=== PATIENT | male | born 1965 | race Caucasian/White ===

== ENCOUNTER → 2024-08-13 15:14 | Outpatient (REF) | payer BC, SELFPAY | LOC: DHVS 15:14 | PROVIDERS: ATTENDING PHYSICIAN Physician Assistant | DX: I65.23 Occlusion and stenosis of bilateral carotid arteries (principal) | CPT/HCPCS: 93880 ==

== ENCOUNTER → 2024-09-05 09:16 | Outpatient (REF) | payer BC, SELFPAY | LOC: RCS 09:16 | PROVIDERS: ATTENDING PHYSICIAN Internal Medicine Cardiovascular Disease; FAMILY PHYSICIAN Physician Assistant | DX: R01.1 Cardiac murmur, unspecified (principal); I10 Essential (primary) hypertension | CPT/HCPCS: 93306 ==

== ENCOUNTER → 2024-11-06 08:09 | Outpatient (REF) | payer BC, SELFPAY | LOC: RAD 08:09 | PROVIDERS: ATTENDING PHYSICIAN Surgery Vascular Surgery | DX: Z01.818 Encounter for other preprocedural examination (principal) | CPT/HCPCS: 93970 ==

== ENCOUNTER 2024-11-11 06:13 | Inpatient (IN) | payer BC, SELFPAY ==
[2024-11-06 09:40] VITALS: BMI 19.2
[2024-11-06 10:49] LABS: % Basophils 1.3 % (0-2); % Eosinophils 3.5 % (0-6); % Immature Granulocytes 0.4 % (0-0.5); % Lymphocytes 19.6 % (20.5-51.1); % Monocytes 7.1 % (1.7-9.3); % Neutrophils 68.1 % (42.2-75.2); Absolute Basophils 0.1 10^3/uL (0-0.2); Absolute Eosinophils 0.4 10^3/uL (0-0.7); Absolute Monocytes 0.7 10^3/uL (0.1-0.6); Hematocrit 47.9 % (39.0-52.0); Hemoglobin 16.4 g/dL (13.0-18.0); Mean Corp Hgb Conc. 34.2 g/dL (33.0-37.0); Mean Corpuscular Hgb 27.7 pg (27.0-31.0); Nucleated Red Blood Cells % 0 % (-); Platelet Count 454 10^3/uL (130-400); Red Blood Cell Count 5.91 10^6/uL (4.70-6.10); Red Cell Dist. Width 13.6 % (11.5-14.5); White Blood Cell Count 10.3 10^3/uL (4.8-10.8)
[2024-11-06 10:59] LABS: INR 0.98; PT 13.3 Sec (11.4-14.6)
[2024-11-06 11:00] LABS: APTT 32.8 Sec (23.4-35.0)
[2024-11-06 11:04] LABS: Blood Urea Nitrogen 21 mg/dl (9-20); Calcium 9.6 mg/dl (8.4-10.2); Carbon Dioxide 31 mmol/L (22-30); Chloride 97 mmol/L (98-107); Estimated Creatinine Clearance 59 ml/min; Glucose 107 mg/dl (70-99); Potassium 4.8 mmol/L (3.5-5.1); Sodium 138 mmol/L (135-145); eGFR > 60.00
[2024-11-11] VITALS (16 sets, daily range): BP systolic 69–168; BP diastolic 49–109; BMI 18.8
[2024-11-11] MEDS: BACTROBAN NASAL 1 GRAM NASAL (06:36)
[2024-11-11] MEDS: PERIDEX 0.12% ORAL RINSE 15 ML PO (06:36)
--- NOTE | 2024-11-11 07:01 | W.SUR.PREOP ---
Pre-Operative Surgical Note
-
I have examined this patient prior to the performance of the scheduled procedure.
The patient's condition is unchanged from the time of the current History and
Physical and the patient is able to undergo the scheduled procedure.
--- NOTE | 2024-11-11 11:34 | W.SUR.POST ---
Surgical Immediate Post Op
Note
Pre Op Diagnosis: Right carotid stenosis
Post Op Diagnosis: Same
Procedure Performed: Right carotid artery bypass with saphenous vein
Primary Surgeon: Jonh
Secondary Surgeons: Brian DIXON
Anesthesia: General
Estimated Blood Loss: 100 cc
Fluids: See anesthesia flowsheet
Drains/Shunts: None
Specimens/Cultures: None
Doppler/Duplex/Angio (Y/N): Yes
Complications: None
Operative Findings: Woke from anesthesia moving all extremities
[2024-11-11] MEDS: NEO-SYNEPHRINE 250 IV (12:06)
--- NOTE | 2024-11-11 12:17 | OR.RPT ---
Operative Report
Operative Report
PROCEDURE DATE: 11/11/2024
Preoperative diagnosis:
1. Symptomatic right carotid in-stent restenosis with stent separation and in-stent thrombosis.
2. Recent ipsilateral hemispheric CVA.
3. Prior right neck irradiation for head and neck cancer.
Postoperative diagnosis: Same
Procedure: Right common carotid artery to internal carotid artery bypass with nonreversed greater saphenous vein conduit. (Extensive dissection through scar tissue secondary to prior radiation, and through prior surgical field in the proximal
exposure site (lower neck) which significantly prolonged operative time, and therefore this should qualify for modifier 22).
Surgeon: Jonh
Cut Off Worker: PRINCESS Torres, required for all aspects of procedure including assistance with traction/countertraction, following of suture line, assistance with closure.
Complications: None
Anesthesia: General
Indications for procedure:
Patient with history of head and neck cancer. Severe bilateral carotid stenoses status post staged TCAR procedures. On the right side developed severe stenosis in the proximal common carotid artery that progressed, requiring transfemoral stent
placement overlapping into the TCAR stent. Now had presented to an outside hospital with acute CVA. Significant right hemispheric infarcts. CT angiogram imaging had demonstrated what appeared to be stent separation of the proximal and distal
stents or fracture, slightly difficult to say. In addition there was severe stenosis and intraluminal thrombus in the stent. Therefore, I felt that repeated endovascular invention was high risk for failure and or embolization. Given symptomatic
status, favored revascularization. Risk/benefits/alternatives of surgical revascularization were all fully discussed. I discussed the heightened risk involving dissection through a radiated tissue as well as some scar tissue in the proximal neck
secondary to prior TCAR exposure. Patient understood everything and wished to proceed.
Description of procedure:
Patient was identified brought to the operating room placed on the table in supine position. After the adequate administration of anesthesia and perioperative antibiotics he was prepped and draped in the standard surgical fashion. A standard
preoperative timeout was undertaken and everybody was in agreement the plan. A standard longitudinal incision was made in the right neck that was carried through the skin subcutaneous tissue. Of note, the patient's habitus was almost out of a
cachectic appearance. And therefore his neck tissues were very thin. Using the electrocautery dissection was carried through the platysma muscle layer and then alongside the anterior medial border of the sternocleidomastoid muscle. Due to his
very thin habitus, the sternocleidomastoid muscle itself was mostly tendinous tissue and was very superficial. I immediately started encountering dense scarred tissue secondary to radiation.
I carefully chiseled through the scar tissue staying medial to the sternocleidomastoid muscle. Initially in the lower part of the neck I did not identify the internal jugular vein but was able to identify the common carotid artery. It was encased
in some heavy scar tissue and was very challenging to dissect. Finally I was able to dissect down to the level of the artery, and could palpate a stent in there. I dissected slightly more proximally to the point where I could palpate the artery
where it was soft proximal to the stent. Of note, in order to get there I had to dissect through the scar tissue in addition to the radiation scarring, the scar tissue from the prior TCAR site. I could see the TCAR pursestring suture on the
anterior wall of the common carotid artery. I dissected proximal to here and then very carefully circumferentially dissected the common carotid artery and passed a vessel loop around it which was double looped but not yet tightened.
At this point, I tried to dissect staying on the anterior surface of the common carotid artery more cephalad. However the tissue was very very densely scarred. Proved to be very challenging. There was what appeared to be a moderate size nerve
coursing medial to the lateral over the common carotid here. 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 However I could not be sure. Therefore I was very careful not to divided and did preserve it.
At this point, I elected to see if I could find the distal endpoint (normal distal internal carotid artery) early, rather than dissecting the entirety of the carotid system. Therefore I had extended my incision cephalad up to the neck. I did
dissected more cephalad along the anterior medial border the sternocleidomastoid muscle after having gone through the platysma muscle layer again. Now identified the internal jugular vein which was plastered onto the deep tissue and I carefully
dissected this such that I could reflect it laterally. I then deepened my dissection and identified what initially appeared to be the distal internal carotid artery (slightly challenging to exactly say because the tissues were all white sheen like
as a radiated tissues tend to be). However, I was able to identify that this was the vagus nerve. I carefully without grasping it was able to locally mobilized the vagus nerve laterally. I then was able to clearly see the distal internal carotid
artery. In fact I could see the end of the stent (the stent was visible/transparent through the vessel wall). Just distal to here was the normal artery where it was soft. I had great trouble fully circumferentially dissecting it due to the heavy
irradiated tissue scarring. However finally I was able to do so and passed a vessel loop around it. Of note, I clearly visualized the hypoglossal nerve just cephalad and anterior to the carotid artery where it was soft to palpation. In order to
help mobilize the tissues, I did divide a small portion of the digastric muscle (not the entire belly).
I then initially had hoped to dissect more proximally on the internal carotid artery to try to dissect out the entire carotid system, but this was proving to be too challenging. Making progress was very slow, and the tissues were very stuck. I was
concerned about potential vagal nerve injury if I continued this route. Therefore I elected not to continue and I clearly preserved the vagus nerve from harm's way. I did have control of the common carotid artery and the internal carotid artery
proximally distally. Therefore I felt that the safest thing here to do would be to do a bypass between those 2 sites and to and thereby excluding the thrombus laden stented segment.
Now I turned my attention to the left thigh where I marked the saphenous vein under ultrasound prior to prepping and draping. I made an incision in the medial thigh along landmarks. This is carried through the skin subcutaneous tissue. Identified
the greater saphenous vein and dissected a segment of about 15 cm. Any branches were ligated between silk ties and divided thereby mobilizing the entirety of the segment of saphenous vein. I then ligated the vein proximally and distally with heavy
silk ties and clips. I then transected approximately distally. I distended the vein. It distended well. It was reasonably match sized proximally distally, though slightly smaller in the distal segment. Therefore I did distend it and used a
[place] valvulotome to lyse the vein valves under distention so that I can maintain it in a nonreversed fashion.
Satisfied with the venous conduit, I then gave the patient 5500 units of intravenous heparin. Once it had circulated for 3 minutes and I confirmed optimization of blood pressure with my anesthesiology colleagues, I clamped the internal carotid
artery distally and to the common carotid artery proximally. There was no EEG changes immediately. I therefore then transected the distal internal carotid artery just distal to the stent. There was some backbleeding in the stent presumably from
the external carotid. I therefore then placed heavy silk ties around the proximal stump of internal carotid artery. As such I was able to get hemostasis there. My distal end of the internal carotid artery appeared nice and had good backbleeding.
Therefore I felt this would serve as a good distal target for bypass. I then transected the common carotid artery proximally after ligating the distal portion of the exposed common carotid artery with heavy silk ties. I then transected it and the
proximal portion edges were freshened. I then used my saphenous vein conduit and slightly spatulated the saphenous vein again maintaining in a nonreversed fashion and sewed an end-to-end anastomosis to the common carotid artery using a running 5-0
Prolene suture. I completed and tied down my suture line and then placed a bulldog clamp on the vein graft, and released my common carotid artery clamp. There was a couple bleeding points on the posterior suture line, it appeared either the vein
or artery wall had slightly thinned or torn or it was a venous branch site. Regardless I was able to fix this with interrupted [id number] sutures. Complete hemostasis was achieved and there was no narrowing of the venous conduit as such. At
this point I was satisfied. I marked the anterior surface of the vein so as to avoid any kinking or twisting and I relieved redundancy and then transected the distal portion of the vein so that it would line up for the distal anastomosis. Note I
basically laid the vein conduit over the scar tissue overlying the [place] carotid artery (and maintained it anterior to the ansa branch that I preserved). I then spatulated both the distal internal carotid artery as well as the distal vein conduit,
and sewed an end-to-end anastomosis (end-to-end spatulated anastomosis) using a running 6-0 Prolene suture. Prior to completing and tying down my suture line I backbled the internal carotid artery and flushed forward the vein bypass graft. I then
irrigated heparinized saline. I then completed and tied down my suture line. Next I released my internal carotid artery clamp and the bulldog clamp on the vein graft. There is now excellent pulsatile flow through the vein graft and into the
internal carotid artery distally. Doppler confirmed an excellent signal graft dependent in the distal internal carotid artery. At this point I was very satisfied. I gave protamine to reverse the heparin. We meticulously achieved hemostasis.
There was significant oozing throughout the dissection field as would be expected with radiation tissues. Therefore we had to meticulously achieve hemostasis. Finally we were satisfied with hemostasis. We irrigated. Then closed in layers the
neck using 2-0 Vicryl to reapproximate the sternocleidomastoid muscle over the vein graft. We then used 3-0 Vicryl running deep dermal/platysma layer. Finally 4-0 Monocryl subcuticular running stitch was applied. Dermabond was applied to that
side. The saphenectomy site was then irrigated and hemostasis confirmed, and we closed in layers using 3-0 Vicryl running suture for the deep dermal followed by 4-0 Monocryl subcuticular running stitch. Dermabond was applied to that side as well.
The patient tolerated the procedure well. He awoke moving all 4 extremities to command with his tongue in the midline.
[2024-11-11 12:38] LABS: INR 1.04; PT 14.1 Sec (11.4-14.6)
[2024-11-11 12:39] LABS: APTT 30.2 Sec (23.4-35.0)
[2024-11-11 13:10] LABS: Blood Urea Nitrogen 12 mg/dl (9-20); Estimated Creatinine Clearance 82 ml/min; Glucose 130 mg/dl (70-99); Sodium 134 mmol/L (135-145); eGFR > 60.00
[2024-11-11 13:11] LABS: Carbon Dioxide 26 mmol/L (22-30); Chloride 101 mmol/L (98-107); Potassium 4.5 mmol/L (3.5-5.1)
[2024-11-11] MEDS: NSS 1000 IV (13:38)
[2024-11-11 13:48] LABS: Hematocrit 37.4 % (39.0-52.0); Hemoglobin 12.8 g/dL (13.0-18.0); Mean Corp Hgb Conc. 34.2 g/dL (33.0-37.0); Mean Corpuscular Hgb 27.9 pg (27.0-31.0); Mean Corpuscular Volume 81.5 fL (80.0-94.0); Mean Platelet Volume 9.7 fL (7.4-10.4); Platelet Count 324 10^3/uL (130-400); Red Blood Cell Count 4.59 10^6/uL (4.70-6.10); Red Cell Dist. Width 13.9 % (11.5-14.5); White Blood Cell Count 24.8 10^3/uL (4.8-10.8)
[2024-11-11 14:00] LABS: Troponin I < 0.012 ng/ml
--- NOTE | 2024-11-11 14:00 | PTCARENOTE ---
Addendum entered by Kristen Carpenter RN 11/11/24 16:52:
neosynephrine gtt to keep SBP 100-165
Original Note:
received pt from vascular lab, pt alert and oriented x 3 R neck incision site without drainage, L lateral leg with Aquacel dressing small amount of shadowing at proximal site of dressing , no increase since PACU , pt on Neosynephrine gtt to keep
SBP 140-160 , titrating as needed for goal currently at 60mcg , pt denies co pain at surgical sites , NSR on monitor , denies chest pain , labs noted , family at bedside and updated on current plan of care and condition
--- NOTE | 2024-11-11 15:10 | CON.INTV ---
Consultation
Consultation Request
Date/Time Consultation Requested: 11/11/2024
Date/Time Consultation Performed: 11/11/2020
Requesting Provider: Dr. Borja
Performing Provider: Dr. Simone Avalos
Reason for Consultation: Status post right common carotid artery to internal carotid artery bypass
Medical History
-
History of Present Illness:
58-year-old man with history of coronary artery stenosis with prior stents. Developed in-stent restenosis with stent separation and in-stent thrombosis. History of recent ipsilateral CVA. Prior right neck radiation for head and neck cancer.
Admitted for revascularization. Underwent right common carotid artery to internal carotid artery bypass. Operative report reviewed, extensive dissection through scar secondary to prior radiation.
Transferred to the critical care unit for postoperative monitoring.
Past Medical History
Past Medical History: Other (See assessment and plan )
Social History
Alcohol: None
Drug: None
Living: With Family
Family History
Family History: Reviewed & Not Pertinent
Allergies / Home Medications
Allergies
Allergy/AdvReac Type Severity Reaction Status Date / Time
pecan nut Allergy Shortness Verified 11/04/24 11:14
of Breath
Home Medications
�Medication �Instructions �Recorded �Confirmed �Last Taken �Type
albuterol sulfate 90 mcg/actuation 2 puff inhalation R Q4HPRN PRN 11/14/18 11/11/24 11/10/24 18:00 History
aerosol inhaler wheeze
aspirin 81 mg tablet,delayed 81 mg PO QPM Blood clot 11/14/18 11/11/24 11/10/24 21:00 History
release (Aspir-Low) prevention/tx
clopidogrel 75 mg tablet 75 mg PO QPM Blood clot 11/14/18 11/11/24 11/10/24 21:00 History
prevention/tx
metoprolol succinate 100 mg 100 mg PO QPM Blood pressure 11/14/18 11/11/24 11/10/24 21:00 History
tablet,extended release 24 hr
atorvastatin 10 mg tablet 10 mg PO QPM High cholesterol 08/17/20 11/11/24 11/10/24 21:00 History
sodium chloride 0.65 % nasal spray 2 spray intranasal PRN PRN dryness 08/17/20 11/11/24 11/09/24 21:00 History
aerosol (Saline Nasal [place])
amlodipine 10 mg tablet 10 mg PO QPM Blood pressure 08/18/20 11/11/24 11/10/24 21:00 History
levothyroxine 100 mcg tablet 100 mcg PO DAILY 11/04/24 11/11/24 11/11/24 05:30 History
lisinopril 10 mg tablet 30 mg PO DAILY 11/04/24 11/11/24 11/10/24 21:00 History
Review of Systems
-
History Source: Patient
All other systems: Negative unless noted
Vitals / Labs / Diagnostic Testing
Vital Signs
Temp Pulse Resp BP Pulse Ox
98.3 F 88 17 168/76 98
11/11/24 13:24 11/11/24 13:46 11/11/24 13:46 11/11/24 13:46 11/11/24 13:46
Lab Data
11/11/24 12:11
11/11/24 12:11
Laboratory Results
11/11/24
12:11
PT 14.1
INR 1.04
APTT 30.2
Diagnostic Testing:
Physical Exam
-
HEENT: Normocephalic
Cardiovascular: S1/S2
Respiratory: Non-Labored Respirations
GI: Soft and Non Distended
Neurology: Awake and Alert
Skin: Warm
General: Comfortable
Assessment
-
Status post: Right common carotid artery to internal carotid artery bypass with nonreversed greater saphenous vein conduit. (Extensive dissection through scar tissue secondary to prior radiation, and through prior surgical field in the proximal
exposure site. 11/11/[address] Borja
leukocytosis possibly reactive.
Conditions present prior admission:
Hypertension
History of nasopharynx cancer status post chemoradiation in 1991
Carotic stenosis
History of CVA 10/22/2024
Hypothyroidism
Prior right carotic stent- TCAR
11/28/2020- [place] neck hematoma
11/2021- R Common carotid in stent restenosis
Suprapubic catheter 6 months ago-possibly from enlarged prostate. Outpatient evaluation ongoing.
Assessment and plan:
Postoperative surgical intensive care unit monitoring
Supplemental oxygen as needed
Incentive spirometry
Aspiration precautions incision without hematoma
No stridor on exam
Analgesia with narcotics. Monitor respiratory status closely.
Neuro and vascular checks per protocol
Vascular surgery following-correspondence and operative notes reviewed
Monitor blood pressure
Currently on Inder-Synephrine drip-maintain mean arterial blood pressure 65 mmHg.
Hold antihypertensive
Currently neurologically intact
Follow hemoglobin
Follow blood sugars
Insulin supplementation as needed
Suprapubic catheter in place with clear urine
DVT prophylaxis-SCD
Advance diet as able
Early mobilization
-
Critical care statement: A total of 31 minutes of critical care time was provided for this patient today. This includes management of unstable vital signs, evaluation of the patient at bedside, reviewing the patient's pertinent medical records
including ventilator settings, arterial blood gases, radiographs, microbiology, laboratory evaluations and discussion with primary team, critical care nursing, and respiratory therapy.
[2024-11-11] MEDS: HEPARIN 5000 UNITS SC (17:44)
--- NOTE | 2024-11-11 18:00 | PTCARENOTE ---
pt WBC post surgery up to 24.8 from 10.3 on 11/06 , pt states he had his suprapubic Sánchez cath changed out yesterday , he looks non toxic , and is afebrile , Dr Borja notified of WBC elevation
--- NOTE | 2024-11-11 20:00 | PTCARENOTE ---
Neurological checks unchanged from previous shift. Pt is A&Ox3, pupils are equal/reactive to light, and can move all 4 extremities. Right neck surgical dressing C/D/I. Left inner thigh aquacell dressing also intact w/ small amount of old drainage
noted. Pt does not c/o pain.
[2024-11-12] VITALS (32 sets, daily range): BP systolic 58–144; BP diastolic 32–87; BMI 19.0
[2024-11-12] MEDS: NSS 1000 IV (00:05)
[2024-11-12] MEDS: HEPARIN 5000 UNITS SC ×4 (00:05→23:36)
--- NOTE | 2024-11-12 00:30 | PTCARENOTE ---
Upon reassessment neurological checks remain unchanged. Surgical dressings intact.
--- NOTE | 2024-11-12 04:30 | PTCARENOTE ---
Pt resting comfortably at this time.
[2024-11-12 04:38] LABS: Hemoglobin 11.2 g/dL (13.0-18.0); Mean Corp Hgb Conc. 32.9 g/dL (33.0-37.0); Mean Corpuscular Hgb 27.5 pg (27.0-31.0); Mean Corpuscular Volume 83.3 fL (80.0-94.0); Mean Platelet Volume 9.6 fL (7.4-10.4); Platelet Count 306 10^3/uL (130-400); Red Blood Cell Count 4.08 10^6/uL (4.70-6.10); White Blood Cell Count 21.7 10^3/uL (4.8-10.8)
[2024-11-12 04:58] LABS: INR 1.03
[2024-11-12 04:59] LABS: APTT 31.9 Sec (23.4-35.0)
[2024-11-12 05:01] LABS: Blood Urea Nitrogen 15 mg/dl (9-20); Calcium 8.2 mg/dl (8.4-10.2); Carbon Dioxide 30 mmol/L (22-30); Chloride 101 mmol/L (98-107); Estimated Creatinine Clearance 80 ml/min; Glucose 121 mg/dl (70-99); Sodium 135 mmol/L (135-145); eGFR > 60.00
--- NOTE | 2024-11-12 08:23 | W.PN.VS ---
Addendum entered and electronically signed by Kaleb Borja MD 11/12/24 12:32:
Seen and examined with PRINCESS Dudley earlier this a.m. This is a late entry. Agree with findings as noted below. Patient without significant complaints this morning. Right neck incision clean dry and intact. Slightest bit of ooze from superior
aspect. Gauze applied. No hematoma in the neck. Neurologically no focal deficits. Moves all extremities well. Tongue midline. Plan/as discussed and noted below.
Addendum entered and electronically signed by ZACK Cueva 11/12/24 12:18:
CDI: On home O2/supplemental oxygen.
Other
Original Note:
Today's Communication / Plan
-
Seen and assessed with Dr. Borja
Assessment/Plan
-
POD 1 right carotid artery bypass
Plan:
-DC A-line
-DC IV fluids
-Out of bed/ambulate
-P.o. medications
-Increase diet
-Likely DC later today
Subjective Data
-
Date of Service: November 12, 2024
Patient seen at bedside this a.m. with Dr. Borja. Patient offers no complaints at this time. No events overnight. Off benedict this morning.
Objective Data
-
Vital Signs
Temp Pulse Resp BP Pulse Ox
97.9 F 89 21 117/87 99
11/12/24 07:27 11/12/24 07:17 11/12/24 07:17 11/12/24 07:17 11/12/24 07:15
Intake and Output
11/11/24 11/12/24 11/13/24
06:59 06:59 06:59
Intake Total 2201.0 / 2201.0
Output Total 3150 / 3150
Balance -949.0 / -949.0
Intake:
Oral fluids 500 / 500
IV fluids (Total) 1701.0 / 1701.0
NSS 250 / 250
Nss 1,000 ml @ 80 mls/hr IV . 1280 / 1280
[id number] SAVAGE Rx#:[id number]
neosynephrine gtt 171.0 / 171.0
Output:
Urine, Sánchez 2775 / 2775
Suprapubic output 375 / 375
Lab Results
11/12/24 04:22
11/12/24 04:22
Calcium 8.2 mg/dl (8.4-10.2) L 11/12/24 04:22
Physical Exam
-
AAOx3
No tachypnea on nasal cannula
No tachycardia
Neck site dressing removed and replaced, scant ooze at the top of incision. No ecchymosis, no swelling, site flat
Leg site clean, dry, intact
Moving all extremities equally
Following commands
Tongue midline
--- NOTE | 2024-11-12 10:01 | PTCARENOTE ---
Neuro intact. A-line removed. Pt sat on side of bed, pt c/o lightheadedness/dizziness stated 'the room is spinning'. BP 50s/30s. Pt back in bed. Once back in bed, low pressures resolved. TT RECEIVING SUPERVISOR Migdalia Torres - at bedside to see pt, no new orders at this
time.
--- NOTE | 2024-11-12 10:15 | CM ---
CM following re: discharge planning.
Discussed in Rounds, reviewed pt's chart, met with pt.
Pt is a 58 year old male, admitted with primary dx of POD 1 s/p right carotid artery bypass. Per Vascular Surgery pt will be ready for discharge tomorrow. Pt is aware, expressed his agreement.
Pt reports he lives with a daughter and a son in an apartment, 12 steps to enter, has 3 supportive children. pt described himself as independent in all areas [employer]PER[employer], works, drives. Pt reports he has home Oxygen and requires 2L NC at baseline. Pt stated
he has adoptable O2 tank with him.
PCP: Rae Velez
Pharmacy: [facility]
D/C plan: home with anticipated no needs. family to transport at discharge.
CM will follow with discharge plan updates as needed.
--- NOTE | 2024-11-12 11:17 | W.PN.INTV ---
Today's Communication / Plan
Recommendations
Continue postoperative care
Increase activity as able monitor leukocytosis
Discharge planning per primary team
If not discharged from the hospital then transition to telemetry
Assessment
-
Status post: Right common carotid artery to internal carotid artery bypass with nonreversed greater saphenous vein conduit. (Extensive dissection through scar tissue secondary to prior radiation, and through prior surgical field in the proximal
exposure site. 11/11/[address] Borja
leukocytosis possibly reactive.
Conditions present prior admission:
Hypertension
History of nasopharynx cancer status post chemoradiation in 1991
Carotic stenosis
History of CVA 10/22/2024
Hypothyroidism
Prior right carotic stent- TCAR
11/28/2020- Washout of Righ neck hematoma
11/2021- R Common carotid in stent restenosis
Suprapubic catheter 6 months ago-possibly from enlarged prostate. Outpatient evaluation ongoing.
Assessment and plan:
Postoperative day 1, doing well.
Postoperative surgical intensive care unit monitoring
Neurologically and hemodynamically stable
-
incision without hematoma
No stridor on exam
Not on supplemental oxygen
Analgesia with narcotics. Monitor respiratory status closely.
His pain is controlled.
Neuro and vascular checks per protocol
Vascular surgery following-correspondence and operative notes reviewed
Leukocytosis without fever noted. Likely reactive
Monitor.
Restart outpatient medication
Increase mobility as able
Arterial line discontinue
Suprapubic catheter in place with clear urine
DVT prophylaxis-SCD
Tolerating diet
Discharge planning per vascular surgery.
If patient not discharged, transition to telemetry later today.
Critical care team will sign
-
Subjective Dataa
Subjective Data
Date of Service:
Date of Service: November 12, 2024
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
Subjective:
Patient offers no new complaints
Eating breakfast independently
Denies headache or blurry vision
Denies nausea or vomiting
Review of Systems
General: Fever (n)
GI: Abdominal Pain (n) and Nausea (n)
Neuro: Headache (n)
Objective Data
Data Reviewed
Vital Signs / I&O / Oxygen:
Vital Signs
Temp Pulse Resp BP Pulse Ox
97.9 F 99 21 89/70 96
11/12/24 07:27 11/12/24 09:50 11/12/24 09:50 11/12/24 09:50 11/12/24 08:30
Intake and Output
11/11/24 11/12/24 11/13/24
06:59 06:59 06:59
Intake Total 2201.0 / 2201.0
Output Total 3150 / 3150 350 / 350
Balance -949.0 / -949.0 -350 / -350
SaO2 96
Nasal Cannula flow liters per 2
minute
Physical Exam
General: Comfortable
HEENT: Normocephalic and Other (Cervical incision intact without hematoma. No stridor on exam)
Cardiovascular: S1-S2
Respiratory: Non-Labored Respirations
GI: Soft and Non Distended
Neurology: Alert and No Motor Deficits
Skin: Warm
Labs/Micro/Reports
Lab Data
11/12/24 04:22
11/12/24 04:22
Laboratory Results
11/11/24 11/12/24
:11 04:22
PT 14.1 14.0
INR 1.04 1.03
APTT 30.2 31.9
--- NOTE | 2024-11-12 11:22 | W.PN.INTV ---
Today's Communication / Plan
Recommendations
Continue postoperative care
Increase activity as able
Advance diet
Continue to monitor cervical incision
Discharge planning per primary team
Sign off
Assessment
-
Status post: Right common carotid artery to internal carotid artery bypass with nonreversed greater saphenous vein conduit. (Extensive dissection through scar tissue secondary to prior radiation, and through prior surgical field in the proximal
exposure site. 11/11/[address] Borja
leukocytosis possibly reactive.
Conditions present prior admission:
Hypertension
History of nasopharynx cancer status post chemoradiation in 1991
Carotic stenosis
History of CVA 10/22/2024
Hypothyroidism
Prior right carotic stent- TCAR
11/28/2020- Washout of Righ neck hematoma
11/2021- R Common carotid in stent restenosis
Suprapubic catheter 6 months ago-possibly from enlarged prostate. Outpatient evaluation ongoing.
Assessment and plan:
Postoperative day 1, doing well.
Postoperative surgical intensive care unit monitoring
Neurologically and hemodynamically stable
-
incision without hematoma
No stridor on exam
Not on supplemental oxygen
Analgesia with narcotics. Monitor respiratory status closely.
His pain is controlled.
Neuro and vascular checks per protocol
Vascular surgery following-correspondence and operative notes reviewed
Leukocytosis without fever noted. Likely reactive
Monitor.
Restart outpatient medication
Increase mobility as able
Arterial line discontinue
Suprapubic catheter in place with clear urine
DVT prophylaxis-SCD
Tolerating diet
Discharge planning per vascular surgery.
If patient not discharged, transition to telemetry later today.
Critical care team will sign
-
Subjective Dataa
Subjective Data
Date of Service:
Date of Service: November 12, 2024
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
Subjective:
Remains intubated, sedated, on multiple pressors. Critically ill
Review of Systems
General: Unobtainable - Sedation
Objective Data
Data Reviewed
Vital Signs / I&O / Oxygen:
Vital Signs
Temp Pulse Resp BP Pulse Ox
97.8 F 99 22 95/73 96
11/12/24 11:17 11/12/24 11:00 11/12/24 11:00 11/12/24 11:00 11/12/24 08:30
Intake and Output
11/11/24 11/12/24 11/13/24
06:59 06:59 06:59
Intake Total 2201.0 / 2201.0
Output Total 3150 / 3150 350 / 350
Balance -949.0 / -949.0 -350 / -350
SaO2 96
Nasal Cannula flow liters per 2
minute
Physical Exam
General: Comfortable
HEENT: Normocephalic and Other (Cervical incision intact without hematoma. No stridor on exam)
Cardiovascular: S1-S2
Respiratory: Non-Labored Respirations
GI: Soft, Non Distended, NG Tube (Scant coffee-ground), Other and Other (Fecal management system with bloody liquid)
Neurology: Alert and No Motor Deficits
Skin: Warm
Labs/Micro/Reports
Lab Data
11/12/24 04:22
11/12/24 04:22
Laboratory Results
11/11/24 11/12/24
12: 04:22
PT 14.1 14.0
INR 1.04 1.03
APTT 30.2 31.9
--- NOTE | 2024-11-12 11:48 | PN.CDI ---
CDI
- -
CDI:
Physician Documentation Request
Admit Date: 11/11/24 06:13
Dear Doctor Vascular Surgery,
Please review the following and provide your response in the progress notes.
Clinical Indicators:
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
11/11 rehab aid assessment noted- support of oxygen as a need prior to admission.
11/12 Dietary Cook note: 'Pt reports he has home Oxygen and requires 2L NC at baseline. Pt stated he has adoptable O2 tank with him.'
Based on the above documentation. Please Clarify which of the following accurately represents the patient's respiratory status:
Chronic respiratory failure
Other
Use of terms such as suspected, likely, concern for, or probable (associated with a specific diagnosis that is being evaluated, monitored, or treated as if it exists) are acceptable and can be coded in the inpatient setting, when documented at the
time of discharge.
Thank you,
Emily Patel RN, BSN
CDI Specialist
Available via [place] [employer]
Please use your independent medical judgment in providing your response.
--- NOTE | 2024-11-12 13:24 | PTCARENOTE ---
Pt assisted OOB to chair, pt tolerated much better. Slight lightheadedness on initial change of position to sitting on side of bed. Resolved prior to standing. No change in physical assessment.
[2024-11-12] MEDS: TYLENOL 650 MG PO (13:28)
[2024-11-12] MEDS: PLAVIX 75 MG PO (17:45)
[2024-11-12] MEDS: ASPIR LOW (ENTERIC COATED) 81 MG PO (17:45)
[2024-11-12] MEDS: LIPITOR 10 MG PO (17:45)
[2024-11-12] MEDS: TOPROL XL 50 MG PO (17:46)
--- NOTE | 2024-11-12 18:05 | PTCARENOTE ---
Pt ambulated in room and out to hallway. Pt initially lightheaded/dizzy on standing up, but resolved after standing still for 5 minutes and then walking. Ambulatory POX 93-97% RA. No changes to physical assessment. Neuro intact.
--- NOTE | 2024-11-12 20:00 | PTCARENOTE ---
Neurological checks unchanged from previous shift. Surgical wound dressings C/D/I.
--- NOTE | 2024-11-12 20:00 | PTCARENOTE ---
Resumed care of pt this evening. Received pt A&Ox3, can move all 4 extremities, and can make needs known. Pt is NSR on tele monitor, has trace edema at the neck near the surgical site, and palpable pedal pulses. Pt is on RA satting at 97% pulse ox.
On auscultation pt lungs sound diminished TO and is coarse w/ crackles and has an expiratory wheeze at the right posterior lung. Pt's abdomen has hypoactive BS. Pt has a suprapubic cath in place draining yellow colored urine w/ sediment. Pt's right
neck surgical dressing is C/D/I. Pt's left inner thigh surgical aquacell dressing has a small amount of old drainage but otherwise C/D/I.
[2024-11-13] VITALS (23 sets, daily range): BP systolic 83–163; BP diastolic 54–104; PULSE 88–96; BMI 19.0
--- NOTE | 2024-11-13 00:20 | PTCARENOTE ---
Upon reassessment pt is resting comfortably.
[2024-11-13] MEDS: SYNTHROID 100 MCG PO (05:32)
[2024-11-13] MEDS: TYLENOL 650 MG PO (05:46)
[2024-11-13 06:01] LABS: Blood Urea Nitrogen 15 mg/dl (9-20); Calcium 8.2 mg/dl (8.4-10.2); Carbon Dioxide 32 mmol/L (22-30); Chloride 98 mmol/L (98-107); Estimated Creatinine Clearance 81 ml/min; Glucose 122 mg/dl (70-99); Sodium 131 mmol/L (135-145); eGFR > 60.00
[2024-11-13 06:02] LABS: Hematocrit 29.5 % (39.0-52.0); Hemoglobin 9.8 g/dL (13.0-18.0); Mean Corp Hgb Conc. 33.2 g/dL (33.0-37.0); Mean Corpuscular Hgb 27.4 pg (27.0-31.0); Mean Corpuscular Volume 82.4 fL (80.0-94.0); Mean Platelet Volume 9.8 fL (7.4-10.4); Platelet Count 223 10^3/uL (130-400); Red Blood Cell Count 3.58 10^6/uL (4.70-6.10); White Blood Cell Count 18.1 10^3/uL (4.8-10.8)
[2024-11-13] MEDS: HEPARIN 5000 UNITS SC ×2 (07:27→16:15)
--- NOTE | 2024-11-13 09:16 | W.PN.VS ---
Addendum entered and electronically signed by Davis Sánchez III, MD 11/13/24 17:09:
This patient was seen and examined with ZACK Barnes. I agree with the history and physical exam as well as the assessment and plan. I have the following additions:
Sitting in chair with no complaints
Some orthostatic hypotension this morning
Right neck incision with some fullness but this is very soft and there is no overlying skin compromise
No shortness of breath or airway complaints
Will keep today to monitor blood pressure
IV fluids
Can possibly resume BP medication if blood pressure settles out later today
Monitor incision closely
Signed:
Davis Sánchez III, MD
[facility] Vascular Surgery
[phone] (wwxk)
Original Note:
Today's Communication / Plan
-
Patient seen and examined at bedside with Dr. Davis Sánchez III, below plan reviewed with attending
Assessment/Plan
-
POD 2 right carotid artery bypass
Plan:
-Given evidence of orthostasis upon standing will provide 500 mL normal saline bolus
-Will continue to watch blood pressure trends and possibly restart home antihypertensive medications, home beta-alex was given last evening but at half dose (metoprolol XL 50 mg p.o. given last night)
-Out of bed/ambulate
-Will keep today given fluctuations of blood pressure with position changes, possible discharge tomorrow
-Would continue intensive care monitoring given episodes of hypotension with position change
Subjective Data
-
Date of Service: November 13, 2024
Patient seen and examined at chair side, offers no complaints. Does endorse dizziness and lightheadedness with position changes. Per nursing orthostasis appreciated with decreased blood pressure sometimes as low as systolic blood pressures in the
80s with position changes. Denies nausea, vomiting, fever, and chills. Reports well-managed postoperative pain.
Objective Data
-
Vital Signs
Temp Pulse Resp BP Pulse Ox
97.4 F 96 26 124/82 94
11/13/24 08:17 11/13/24 08:01 11/13/24 08:01 11/13/24 08:01 11/13/24 08:01
Intake and Output
11/12/24 11/13/24 11/14/24
06:59 06:59 06:59
Intake Total 2201.0 / 2201.0 480 / 480
Output Total 3150 / 3150 1895 / 1895
Balance -949.0 / -949.0 -1415 / -1415
Intake:
Oral fluids 500 / 500 480 / 480
IV fluids (Total) 1701.0 / 1701.0
NSS 250 / 250
Nss 1,000 ml @ 80 mls/hr IV . 1280 / 1280
[id number] SAVAGE Rx#:[id number]
neosynephrine gtt 171.0 / 171.0
Output:
Urine, Sánchez 2775 / 2775 625 / 625
Suprapubic output 375 / 375 1270 / 1270
Lab Results
11/13/24 05:23
11/13/24 05:23
Calcium 8.2 mg/dl (8.4-10.2) L 11/13/24 05:23
Physical Exam
-
AAOx3
No tachypnea on nasal cannula
No tachycardia
Neck site dressing CDI. No ecchymosis, no swelling, site flat
Leg site clean, dry, intact
Moving all extremities equally
Following commands
Tongue midline
--- NOTE | 2024-11-13 09:28 | PN.CDI ---
CDI
- -
CDI:
Physician Documentation Request
Admit Date: 11/11/24 06:13
Dear Doctor Vascular Surgery,
Please review the following and provide your response in the progress notes.
Clinical Indicators:
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
11/12 RN note: 'Pt sat on side of bed, pt c/o lightheadedness/dizziness stated 'the room is spinning'. BP 50s/30s'
11/13 Progress note: 'Given evidence of orthostasis upon standing will provide 500 mL normal saline bolus'
Laboratory Tests
11/06/24 11/11/24 11/13/24
09:36 12:11 05:23
Hgb 16.4 12.8 L D 9.8 L
Based on the above, could you clarify, in your progress note, which of the following is the most likely type of anemia you are evaluating, monitoring and/or treating?
Acute blood loss anemia
Other
Use of terms such as suspected, likely, concern for, or probable (associated with a specific diagnosis that is being evaluated, monitored, or treated as if it exists) are acceptable and can be coded in the inpatient setting, when documented at the
time of discharge.
Thank you,
Emily Patel RN, BSN
CDI Specialist
Available via [place] Text
Please use your independent medical judgment in providing your response.
[2024-11-13] MEDS: NSS 500 IV (09:30)
--- NOTE | 2024-11-13 09:35 | PN.CDI ---
CDI
- -
CDI:
Physician Documentation Request
Admit Date: 11/11/24 06:13
Dear Doctor Vascular Surgery,
Please review the following and provide your response in the progress notes.
Clinical Indicators:
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
Laboratory Tests
11/11/24 11/13/24
05:23
Sodium 134 L 131 L
Based on the above, could you clarify in the progress notes, the appropriate diagnosis, that supports the above abnormal lab values and additional evaluation, monitoring and/or treatment rendered:
Hyponatremia
Insignificant abnormal lab values
Other
Use of terms such as suspected, likely, concern for, or probable (associated with a specific diagnosis that is being evaluated, monitored, or treated as if it exists) are acceptable and can be coded in the inpatient setting, when documented at the
time of discharge.
Thank you,
Emily Patel RN, BSN
CDI Specialist
Available via [place] Text
Please use your independent medical judgment in providing your response.
--- NOTE | 2024-11-13 10:45 | PTCARENOTE ---
Rec'd care of patient at 0700. Patient alert and oriented. Neuro check wnl. Right neck incision covered with dressing, c/d/i. Left thigh aquacell dressing intact, small old drainage. NSR on tele monitor. Lung sounds coarse with scattered crackles
[address] Rhonchi in b/l UL. Moist cough present; non-productive. Pulse ox 96%. IS encouraged. +BS. No BM. Appetite good. 100% breakfast consumed. Suprapubic cath putting out yellow urine with sediment. Orthostatic vital signs check while
assisting patient to chair in am - laying 126/81 88, sitting 96/68 91, standing 83/59 96. Vascular surgery notified. Advised to give 500 cc NS bolus and hold anti hypertensives. Patient downgraded to tele level.
--- NOTE | 2024-11-13 12:42 | PTCARENOTE ---
Report given to receiving RN Erum. Patient eating lunch and then will be transferred to .
--- NOTE | 2024-11-13 14:13 | CM ---
CM following re: discharge planning.
Reviewed pt's chart, met with pt.
Pt is POD 2 right carotid artery bypass. Per Vascular surgery, possible discharge tomorrow.
D/C plan: home with anticipated no needs. Daughter to transport at discharge.
CM will follow with discharge plan updates as needed.
--- NOTE | 2024-11-13 14:40 | PTCARENOTE ---
Patient transferred from ICU post right carotid bypass.The patient denies any pain.Patient said that surgery just changed the dressing on his neck which is intact with only a scant amount of drainage.The left thigh dressing has a small amount of old
drainage only.Neurovascular assessment is intact and ongoing.The patient is in his bed with the call barahona in place.
--- NOTE | 2024-11-13 14:45 | W.PN.INTV ---
Today's Communication / Plan
Recommendations
Continue with neurovascular checks
Monitor hemodynamics
Status post IV fluids
Check orthostatics later
Hold antihypertensive
Transfer to telemetry
No additional critical care recommendations.
Assessment
-
Status post: Right common carotid artery to internal carotid artery bypass with nonreversed greater saphenous vein conduit. (Extensive dissection through scar tissue secondary to prior radiation, and through prior surgical field in the proximal
exposure site. 11/11/[address] Borja
leukocytosis possibly reactive.
Conditions present prior admission:
Hypertension
History of nasopharynx cancer status post chemoradiation in 1991
Carotic stenosis
History of CVA 10/22/2024
Hypothyroidism
Prior right carotic stent- TCAR
11/28/2020- Washout of Righ neck hematoma
11/2021- R Common carotid in stent restenosis
Suprapubic catheter 6 months ago-possibly from enlarged prostate. Outpatient evaluation ongoing.
Assessment and plan:
Postoperative day 2, doing well.
-
Orthostasis earlier today
Status post 500 mL of normal saline
Currently asymptomatic
Antihypertensive on hold, eventually to restart possibly at a lower dose.
-
Neurologically intact
-
Incision without hematoma
No stridor on exam
Not on supplemental oxygen
Analgesia with narcotics. Monitor respiratory status closely.
His pain is controlled.
Neuro and vascular checks per protocol
Vascular surgery following-correspondence and operative notes reviewed
Leukocytosis without fever noted. Likely reactive
Monitor.
Restart outpatient medication
Increase mobility as able
Arterial line discontinue
Suprapubic catheter in place with clear urine
DVT prophylaxis-SCD
Tolerating diet
Subjective Dataa
Subjective Data
Date of Service:
Date of Service: November 13, 2024
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
Subjective:
Patient offers no complaints.
Orthostasis noted earlier today.
Denies vomiting.
Denies abdominal pain.
Review of Systems
Cardiopulmonary: Dyspnea (n)
GI: Abdominal Pain (n) and Nausea (n)
Neuro: Headache (n)
Objective Data
Data Reviewed
Vital Signs / I&O / Oxygen:
Vital Signs
Temp Pulse Resp BP Pulse Ox
98.6 F 107 21 147/88 94
11/13/24 12:13 11/13/24 13:36 11/13/24 13:36 11/13/24 13:36 11/13/24 13:36
Intake and Output
11/12/24 11/13/24 11/14/24
06:59 06:59 06:59
Intake Total 2201.0 / 2201.0 480 / 480 500 / 500
Output Total 3150 / 3150 1895 / 1895 1425 / 1425
Balance -949.0 / -949.0 -1415 / -1415 -925 / -925
SaO2 94
Nasal Cannula flow liters per 2
minute
Physical Exam
General: Comfortable
HEENT: Normocephalic and Other (Cervical incision intact without hematoma. No stridor on exam)
Cardiovascular: S1-S2
Respiratory: Non-Labored Respirations
GI: Soft, Non Distended, NG Tube (Scant coffee-ground), Other and Other (Fecal management system with bloody liquid)
Neurology: Alert and No Motor Deficits
Skin: Warm
Labs/Micro/Reports
Lab Data
11/13/24 05:23
11/13/24 05:23
[2024-11-13] MEDS: ZESTRIL 20 MG PO (16:15)
--- NOTE | 2024-11-13 16:37 | W.PN.UPDATE ---
Update Note
Progress Note Update
Patient experiencing intermittent episodes of orthostatic hypotension, he does endorse experiencing bad orthostatic hypotension episodes at home. He states that they were getting so severe he stopped taking all of his medications because he did not
like the side effects of the dizziness and lightheadedness, this includes his prescribed amlodipine, lisinopril, and metoprolol. However, he does state that for the past month or so he has been taking them as prescribed. We did an audit of his
outpatient prescription pickups and pharmacist relayed to me that he has not picked up/is not prescribed amlodipine 10 mg p.o. daily for several months. He has picked up and is prescribed lisinopril 30 mg p.o. daily and metoprolol 100 mg p.o.
daily. Given his continued experience of orthostatic hypotension here in the hospital setting and per his reports at home. Will completely discontinue amlodipine 10 mg p.o. daily (as I suspect he has not been taking it and does not have a current
outpatient prescription per review by pharmacist), decrease his lisinopril to 20 mg p.o. daily, and will continue his metoprolol 100 mg p.o. daily. Will observe his blood pressure while he remains inpatient. He does endorse that currently his
orthostatic hypotension has improved. Currently resting in bed he offers no complaints. He does have a small area of hematoma and drainage present at the top pole of his incision, Dr. Kaleb Borja updated and will carry out order of holding his Plavix
75 mg p.o. daily. Placed a keisha dressing but cannot successfully hold suction given location of surgical incision.
--- NOTE | 2024-11-13 17:26 | W.PN.UPDATE ---
Update Note
Progress Note Update
Issues with orthostasis reviewed after receiving a text from Migdalia Torres. Agree with discontinuing amlodipine. Agree with a decrease in lisinopril to 20 mg daily. He has a left ventricular outflow tract gradient so metoprolol ER is helpful and
should be continued at 100 mg daily if possible. If further reductions in antihypertensive regimen is required, would favor further decrease or discontinuation of lisinopril and thereafter reduction of metoprolol if needed. Please call if
questions.
[2024-11-13] MEDS: LIPITOR 10 MG PO (17:53)
[2024-11-13] MEDS: ASPIR LOW (ENTERIC COATED) 81 MG PO (17:53)
[2024-11-13] MEDS: TOPROL XL 100 MG PO (17:54)
[2024-11-14] VITALS (7 sets, daily range): BP systolic 99–129; BP diastolic 62–81; PULSE 102–105; BMI 19.0
[2024-11-14] MEDS: HEPARIN 5000 UNITS SC ×3 (00:07→17:02)
[2024-11-14] MEDS: SYNTHROID 100 MCG PO (05:21)
[2024-11-14 06:23] LABS: Blood Urea Nitrogen 14 mg/dl (9-20); Calcium 8.4 mg/dl (8.4-10.2); Carbon Dioxide 28 mmol/L (22-30); Chloride 95 mmol/L (98-107); Estimated Creatinine Clearance 81 ml/min; Glucose 105 mg/dl (70-99); Potassium 4.2 mmol/L (3.5-5.1); Sodium 132 mmol/L (135-145); eGFR > 60.00
[2024-11-14 06:32] LABS: Hematocrit 29.4 % (39.0-52.0); Hemoglobin 9.9 g/dL (13.0-18.0); Mean Corp Hgb Conc. 33.7 g/dL (33.0-37.0); Mean Corpuscular Hgb 27.3 pg (27.0-31.0); Mean Corpuscular Volume 81.2 fL (80.0-94.0); Mean Platelet Volume 10.3 fL (7.4-10.4); Platelet Count 258 10^3/uL (130-400); Red Blood Cell Count 3.62 10^6/uL (4.70-6.10); Red Cell Dist. Width 13.8 % (11.5-14.5); White Blood Cell Count 17.3 10^3/uL (4.8-10.8)
--- NOTE | 2024-11-14 08:12 | W.PN.VS ---
Today's Communication / Plan
-
Patient seen and examined at bedside with Dr. Miryam Rosado, below plan reviewed with attending.
Assessment/Plan
-
POD 3 right carotid artery bypass
Plan:
-Reviewed patient's antihypertensive home medications with his product safety associate via [place] text, product safety associate Dr. LUIS Matias agreed with discontinuing amlodipine and decreasing lisinopril to 20 mg p.o. daily. We will attempt to continue metoprolol XL at
100 mg p.o. daily, if he cannot tolerate and orthostasis continues we will consider giving him a half dose of metoprolol XL at 50 mg p.o. daily.
-Will continue to monitor right neck surgical incision, instructed nursing to reach out immediately if increased drainage or hematoma noted at right neck incision
-Out of bed/ambulate
- PT/OT
-Patient is not cleared for discharge as monitoring is still required for management of home antihypertensive medications in the setting orthostasis and need for continued monitoring of right surgical neck incision
Subjective Data
-
Date of Service: November 14, 2024
Patient seen and examined at bedside, reports tenderness with palpation to right surgical neck incision. Does endorse improvement in lightheaded and dizziness but also notes that he has not gotten out of bed to fully assess the status of his
orthostasis. Denies nausea, vomiting, fever, and chills.
Objective Data
-
Vital Signs
Temp Pulse Resp BP Pulse Ox
99.2 F 93 18 110/69 94
11/14/24 02:56 11/14/24 02:56 11/14/24 02:56 11/14/24 02:56 11/14/24 02:56
Intake and Output
11/13/24 11/14/24 11/15/24
06:59 06:59 06:59
Intake Total 480 / 480 1460 / 1460
Output Total 1895 / 1895 2525 / 2525
Balance -1415 / -1415 -1065 / -1065
Intake:
Oral fluids 480 / 480 960 / 960
IV fluids (Total) 500 / 500
NSS 500 / 500
Output:
Urine, Sánchez 625 / 625 1100 / 1100
Suprapubic output 1270 / 1270 1425 / 1425
Lab Results
11/14/24 04:59
11/14/24 04:59
Calcium 8.4 mg/dl (8.4-10.2) 11/14/24 04:59
Physical Exam
-
AAOx3
No tachypnea on room air
No tachycardia
Neck site dressing CDI, once dressing was removed noted scant amount of bleeding at top of incisional pole, when pressure held bleeding stops, no evidence of hematoma
Leg site clean, dry, intact
Moving all extremities equally
Following commands
Tongue midline
[2024-11-14] MEDS: ZESTRIL 20 MG PO (08:39)
[2024-11-14] MEDS: ProAIR HFA INHALER 2 PUFF INH ×2 (09:13→14:47)
--- NOTE | 2024-11-14 10:01 | W.[place]-PDMP ---
[place]PD[place]
-
Checked the [place]- Pres[place] Drug Monitoring Program website, no red flags identified; safe to proceed with prescription.
--- NOTE | 2024-11-14 13:12 | PTCARENOTE ---
This nurse, Shanell Platt RN, has been working with this patient since 0700 and has been charting on this patient during day shift. Accidentally documented under nurse Sinai Thacker.
[2024-11-14] MEDS: TOPROL XL 100 MG PO (17:02)
[2024-11-14] MEDS: ASPIR LOW (ENTERIC COATED) 81 MG PO (17:02)
[2024-11-14] MEDS: LIPITOR 10 MG PO (17:03)
[2024-11-15] VITALS (16 sets, daily range): BP systolic 2–163; BP diastolic 53–92; BMI 19.0
[2024-11-15 05:10] LABS: Hemoglobin 10.6 g/dL (13.0-18.0); Mean Corp Hgb Conc. 33.1 g/dL (33.0-37.0); Mean Corpuscular Hgb 27.5 pg (27.0-31.0); Mean Corpuscular Volume 82.9 fL (80.0-94.0); Mean Platelet Volume 9.9 fL (7.4-10.4); Platelet Count 292 10^3/uL (130-400); Red Blood Cell Count 3.86 10^6/uL (4.70-6.10); Red Cell Dist. Width 13.8 % (11.5-14.5); White Blood Cell Count 15.9 10^3/uL (4.8-10.8)
[2024-11-15] MEDS: SYNTHROID 100 MCG PO (05:28)
[2024-11-15 05:35] LABS: Blood Urea Nitrogen 15 mg/dl (9-20); Calcium 8.7 mg/dl (8.4-10.2); Carbon Dioxide 30 mmol/L (22-30); Chloride 95 mmol/L (98-107); Estimated Creatinine Clearance 92 ml/min; Glucose 119 mg/dl (70-99); Potassium 4.4 mmol/L (3.5-5.1); Sodium 132 mmol/L (135-145); eGFR > 60.00
--- NOTE | 2024-11-15 06:26 | PTCARENOTE ---
aprox 05:30-pt right carotid drsg observed with mod amount of bloody drainage with slowly oozing from distal end of dressing. Leakage increases when pt coughs. ARCHEOLOGY PROFESSOR notified, Surgeons Jonh and Ashlee notified. Orders to continue to maintain pressure to
sight and make pt NPO. vs stable 111/60 hr 90, plt count 292, nurse at bedside
--- NOTE | 2024-11-15 07:07 | PTCARENOTE ---
Dr Rosado at bedside, pt signing consent .
--- NOTE | 2024-11-15 07:45 | W.PN.VS ---
Today's Communication / Plan
-
as above
Assessment/Plan
-
POD 4 right carotid artery bypass
Plan:
-Patient continues to continuously ooze from his incision, and now with concern for developing hematoma. I discussed with him I would recommend exploration and washout. He understands risk of stroke, continued bleeding, and wound breakdown. I have
spoken to anesthesia regarding my airway concerns and alerted the OR
Subjective Data
-
Date of Service: November 15, 2024
Patient's dressing was dry until this morning when he coughed, resulting in initial spurt of bleeding followed by continuous ooze. Says he feels ok with no respiratory symptoms
Objective Data
-
Vital Signs
Temp Pulse Resp BP Pulse Ox
98.7 F 90 18 111/60 92
11/15/24 02:51 11/15/24 06:05 11/15/24 02:51 11/15/24 06:05 11/15/24 02:51
Intake and Output
11/14/24 11/15/24 11/16/24
06:59 06:59 06:59
Intake Total 1460 / 1460 240 / 240
Output Total 2525 / 2525 1050 / 1050
Balance -1065 / -1065 -810 / -810
Intake:
Oral fluids 960 / 960 240 / 240
IV fluids (Total) 500 / 500
NSS 500 / 500
Output:
Urine, Sánchez 1100 / 1100 650 / 650
Urine, Voided 400 / 400
Suprapubic output 1425 / 1425
Lab Results
11/15/24 04:23
11/15/24 04:23
Calcium 8.7 mg/dl (8.4-10.2) 11/15/24 04:23
Physical Exam
-
NAD
R neck continuous ooze from superior and inferior aspects of incision
+slightly enlarged hematoma compared to yesterday. Sounds more garbled speech ross
[2024-11-15] MEDS: HEPARIN SC (08:51)
[2024-11-15] MEDS: ZESTRIL PO (08:52)
--- NOTE | 2024-11-15 09:01 | W.IMMPOSTOP ---
Surgical Immed Post Op Note
-
Primary Surgeon:
Lotto
Assisting Surgeon:
Pre-op Diagnosis:
R neck bleed/hematoma
Post-op Diagnosis:
same
Procedure Performed:
R neck exploration, control of bleeding
Anesthesia Type:
GETA
Specimen / Cultures:
Estimated Blood Loss:
10cc
Complications:
none
Operative Findings:
R neck superficial bleeding vessel controlled with cautery
[2024-11-15] MEDS: OCEAN, SALINE MIST 2 SPRAYS NASAL (14:17)
[2024-11-15] MEDS: ASPIR LOW (ENTERIC COATED) 81 MG PO (17:53)
[2024-11-15] MEDS: TOPROL XL 100 MG PO (17:54)
[2024-11-15] MEDS: LIPITOR 10 MG PO (17:54)
[2024-11-15] MEDS: HEPARIN 5000 UNITS SC ×2 (17:55)
[2024-11-16] MEDS: HEPARIN 5000 UNITS SC ×3 (00:08→16:44)
[2024-11-16 03:00] VITALS: BP 120/79
[2024-11-16] MEDS: SYNTHROID 100 MCG PO (05:51)
[2024-11-16 06:00] VITALS: BMI 18.3
[2024-11-16 07:30] VITALS: BP 136/81
[2024-11-16] MEDS: ZESTRIL 20 MG PO (09:44)
--- NOTE | 2024-11-16 10:44 | W.PN.VS ---
Today's Communication / Plan
-
Seen and assessed with Dr Sánchez
Assessment/Plan
-
POD 5 right carotid artery bypass
Plan:
-Will change LUCIEN tomorrow
-Keep MYKE today
-PT/OT
-Follow up video swallow
Subjective Data
-
Date of Service: November 16, 2024
Pt seen at bedside this am with Dr Sánchez. Pt offers no complaints at this time. No events overnight. LUCIEN remains drain, drain intact with 10cc output overnight.
Objective Data
-
Vital Signs
Temp Pulse Resp BP Pulse Ox
97.9 F 82 16 136/81 97
11/16/24 07:30 11/16/24 07:30 11/16/24 07:30 11/16/24 07:30 11/16/24 07:30
Intake and Output
11/15/24 11/16/24 11/17/24
06:59 06:59 06:59
Intake Total 240 / 240 1750 / 1750
Output Total 1050 / 1050 2672 / 2672
Balance -810 / -810 -922 / -922
Intake:
Oral fluids 240 / 240 1200 / 1200
IV fluids (Total) 550 / 550
Normosol 50 / 50
Output:
Drain Output (Total)
Right Neck [place] A
Urine, Sánchez 650 / 650 1450 / 1450
Urine, Voided 400 / 400 1200 / 1200
Lab Results
11/15/24 04:23
11/15/24 04:23
Calcium 8.7 mg/dl (8.4-10.2) 11/15/24 04:23
Physical Exam
-
AAOx3
no tachypnea
no tachycardia
R neck lucien dry with scan drainage on dressing, flat, soft
MYKE drain with 10cc output overnight
Moves all extremities
[2024-11-16 11:01] VITALS: BP 109/81
--- NOTE | 2024-11-16 11:15 | PTOTSP ---
Swallowing Assessment
Patient w/ overt signs of pharyngeal dysphagia/aspiration but this is a longstanding problem from prior surgery and late term effects from radiation. Recent stroke may be contributing but to a lesser extent if at all. Patient is agreeable to a video
swallow study in order to determine the extent of his dysphagia, and how much of a choking risk he is.
Recommend
1. No changes to diet at this point given patient does not want to modify his food. Patient aware of how small to cut up his food.
2. Meds would be best crushed in applesauce if the patient is agreeable.
3. VSE
4. Aspiration Precautions.
[2024-11-16 15:39] VITALS: BP 125/88
--- NOTE | 2024-11-16 16:32 | CM ---
Chart reviewed
CM will follow for d/c needs
Plan - anticipate home no needs
--- NOTE | 2024-11-16 18:02 | W.PN.UPDATE ---
Update Note
Progress Note Update
This patient was seen and examined with ZACK Cueva and ZACK Barnes. I agree with the history and physical exam as well as the assessment and plan. I have the following additions:
Events from the weekend noted
Patient without complaints this morning
Sitting up in chair eating
Velvet dressing right neck intact
Right neck is soft
MYKE drain serosanguineous
His voice is normal no respiratory distress
Would like to follow him today to monitor drain output
Signed:
Davis Sánchez III, MD
[facility]
[phone] (sdzn)
[2024-11-16] MEDS: TOPROL XL 100 MG PO (18:09)
[2024-11-16] MEDS: ASPIR LOW (ENTERIC COATED) 81 MG PO (18:09)
[2024-11-16] MEDS: LIPITOR 10 MG PO (18:09)
[2024-11-16 19:00] VITALS: BP 97/53
[2024-11-16 23:00] VITALS: BP 111/61
[2024-11-17] MEDS: HEPARIN 5000 UNITS SC ×2 (00:12→08:21)
[2024-11-17 03:00] VITALS: BP 130/76
[2024-11-17] MEDS: SYNTHROID 100 MCG PO (05:53)
[2024-11-17 06:00] VITALS: BMI 18.1
[2024-11-17 07:42] LABS: Hematocrit 32.4 % (39.0-52.0); Hemoglobin 10.7 g/dL (13.0-18.0); Mean Corpuscular Hgb 27.4 pg (27.0-31.0); Mean Corpuscular Volume 82.9 fL (80.0-94.0); Mean Platelet Volume 9.9 fL (7.4-10.4); Platelet Count 438 10^3/uL (130-400); Red Blood Cell Count 3.91 10^6/uL (4.70-6.10); White Blood Cell Count 11.8 10^3/uL (4.8-10.8)
[2024-11-17 07:48] LABS: Blood Urea Nitrogen 25 mg/dl (9-20); Carbon Dioxide 33 mmol/L (22-30); Chloride 95 mmol/L (98-107); Estimated Creatinine Clearance 69 ml/min; Glucose 95 mg/dl (70-99); Potassium 4.7 mmol/L (3.5-5.1); Sodium 134 mmol/L (135-145); eGFR > 60.00
--- NOTE | 2024-11-17 08:08 | W.PN.VS ---
Today's Communication / Plan
-
Seen and assessed with Dr. Sánchez
Assessment/Plan
-
POD 6 right carotid artery bypass
Plan:
-Keisha removed at bedside, no drainage noted. Dry dressing applied.
-MYKE removed at bedside, patient tolerated well
-PT/OT
-Okay for discharge today
Subjective Data
-
Date of Service: November 17, 2024
Patient seen at bedside this a.m. with Dr. Sánchez. Patient offers no complaints at this time. Neck dressing intact. MYKE drain with 20 cc output overnight
Objective Data
-
Vital Signs
Temp Pulse Resp BP Pulse Ox
98.0 F 77 18 130/76 94
11/17/24 03:00 11/17/24 03:00 11/17/24 03:00 11/17/24 03:00 11/17/24 03:00
Intake and Output
11/16/24 11/17/24 11/18/24
06:59 06:59 06:59
Intake Total 1750 / 1750 720 / 720
Output Total 2672 / 2672 2670 / 2670
Balance -922 / -922 -1950 / -1950
Intake:
Oral fluids 1200 / 1200 720 / 720
IV fluids (Total) 550 / 550
Normosol 50 / 50
Output:
Drain Output (Total)
Right Neck [place] A
UrineGonzalo 250 / 250
Urine, Voided 1200 / 1200
Suprapubic output 1200 / 1200 2650 / 2650
Lab Results
11/17/24 06:01
11/17/24 06:01
Calcium 9.0 mg/dl (8.4-10.2) 11/17/24 06:01
Physical Exam
-
AAOx3
no tachypnea
no tachycardia
R neck keisha dry with scan drainage on dressing, flat, soft
MYKE drain with 20cc output overnight
Moves all extremities
[2024-11-17 08:10] VITALS: BP 130/81
[2024-11-17] MEDS: ZESTRIL 20 MG PO (08:22)
--- NOTE | 2024-11-17 09:14 | W.PN.UPDATE ---
Update Note
Progress Note Update
In response to CDI:
Clinical Indicators:
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
Laboratory Tests
11/11/24 11/13/24
: 05:23
Sodium 134 L 131 L
Based on the above, could you clarify in the progress notes, the appropriate diagnosis, that supports the above abnormal lab values and additional evaluation, monitoring and/or treatment rendered:
Insignificant abnormal lab values
Laboratory Tests
11/06/24 11/11/24 11/13/24
09:36 12: 05:23
Hgb 16.4 12.8 L D 9.8 L
Based on the above, could you clarify, in your progress note, which of the following is the most likely type of anemia you are evaluating, monitoring and/or treating?
Acute blood loss anemia with likely a hemodilutional component monitored with daily lab value repeat on 11/15 and 11/17 resulted with Hgb of 10.7
--- NOTE | 2024-11-17 10:08 | PTOTSP ---
Video Swallow Examination
Severe-profound pharyngeal dysphagia characterized by pharyngeal stasis and aspiration. This is the result of reduced movement of tongue base, severely limited movement of posterior pharyngeal wall, hyolaryngeal complex, and PES distension, as well
as no laryngeal vestibular closure or epiglottic inversion. The patient is at high risk for aspiration and obstruction.
Discussed the negative impact of aspiration on patients health of which the patient acknowledged. However, he is not interested in feeding tube at this time despite risk with oral intake.
Patient is agreeable to trial diet level 5/Minced and moist with thin liquids. Reviewed how to achieve this modification at home. Follow up ST recommended for further education and treatment options.
Recommend
1. IDDSI 5/Thin Liquids
2. Meds crushed in applesauce
3. Aspiration precautions.
4. Follow up ST
--- NOTE | 2024-11-17 10:42 | W.DS.TRANS ---
Addendum entered and electronically signed by ZACK Barnes 11/17/24 12:30:
Changed her medications:
amlodipine 10 mg tablet 10 mg PO QPM Blood pressure 08/18/20 stopped
lisinopril 10 mg tablet 30 mg PO DAILY Blood Pressure 11/04/24 decreased to 20 mg p.o. daily
Original Note:
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
-
Discharge Instructions:
Discharge Diagnosis/Procedures Right carotid stenosis treated with right
carotid arterial bypass
Diet As tolerated
Additional Diets Recommend minced and moist consistency diet and
thin liquids. Please continue to follow with
speech therapy in the outpatient setting.
Activity No strenuous activity
Driving Restrictions Not until seen by your Dr
Bathing Restrictions OK to Shower
Other Services ST
Wound Care You can remove dressings tomorrow. You can cover
surgical incision with dry gauze and secure
with paper tape chaning daily or as needed if
soiled or you can leave incision open to air.
Instructions:
Stand-Alone Forms: DC Instr - Vascular OR
Changes to Home Medications: Yes
Discharge Medications:
DC Medications w/original date entered in [facility]
albuterol sulfate 90 mcg/actuation aerosol inhaler 2 puff inhalation Q4HPRN PRN wheeze 11/14/18
aspirin 81 mg tablet,delayed release (Aspir-Low) 81 mg PO QPM Blood clot prevention/tx 11/14/18
clopidogrel 75 mg tablet 75 mg PO QPM Blood clot prevention/tx 11/14/18
metoprolol succinate 100 mg tablet,extended release 24 hr 100 mg PO QPM Blood pressure 11/14/18
atorvastatin 10 mg tablet 10 mg PO QPM High cholesterol 08/17/20
sodium chloride 0.65 % nasal spray aerosol (Saline Nasal [place]) 2 spray intranasal PRN PRN dryness 08/17/20
amlodipine 10 mg tablet 10 mg PO QPM Blood pressure 08/18/20
levothyroxine 100 mcg tablet 100 mcg PO DAILY Thyroid 11/04/24
lisinopril 10 mg tablet 30 mg PO DAILY Blood Pressure 11/04/24
oxycodone 5 mg tablet 5 mg PO Q6HPRN PRN moderate pain #8 tabs 11/14/24
Home Medication Changes
Added:
oxycodone 5 mg tablet 5 mg PO Q6HPRN PRN moderate pain #8 tabs 11/14/24
Pending Results: No
--- NOTE | 2024-11-17 11:01 | CM ---
Patient seen at bedside.
MYKE removed, LUCIEN removed today
Discussed home health
Patient declines home health at this time
IMM n/a
PLAN: Home, declines home health
son to transport
[2024-11-17 11:06] VITALS: BP 123/72
--- NOTE | 2024-11-17 13:12 | W.PN.UPDATE ---
Update Note
Progress Note Update
Medication adjustments made inpatient initially did not reflect appropriately on discharge instructions, called patient at home and reviewed all medication adjustments including changes to dosage, medication holds, and discontinued home medications.
Patient verbalized that he understood all instructions.
== END 2024-11-17 11:57 | disposition home or self-care (01) | DRG 253 ==
LOC: 2 SOUTH 06:13
PROVIDERS: Nurse Practitioner; Nurse Practitioner Acute Care; Surgery; ADMITTING PHYSICIAN Surgery Vascular Surgery; FAMILY PHYSICIAN Nurse Practitioner Family
PROC: 031 Upper Arteries, Bypass (ICD-10-PCS; 2024-11-11)
PROC: 06BQ0ZZ Excision of Left Saphenous Vein, Open Approach (ICD-10-PCS; 2024-11-11)
PROC: 0W360ZZ Control Bleeding in Neck, Open Approach (ICD-10-PCS; 2024-11-15)
DX: T82.856A Stenosis of peripheral vascular stent, initial encounter (principal); D62 Acute posthemorrhagic anemia; L76.32 Postprocedural hematoma of skin and subcutaneous tissue following other procedure; R64 Cachexia; Z68.1 Body mass index [BMI] 19.9 or less, adult; T82.518A Breakdown (mechanical) of other cardiac and vascular devices and implants, initial encounter; I65.21 Occlusion and stenosis of right carotid artery; I10 Essential (primary) hypertension; Z86.73 Personal history of transient ischemic attack (TIA), and cerebral infarction without residual deficits; Z85.89 Personal history of malignant neoplasm of other organs and systems; I25.10 Atherosclerotic heart disease of native coronary artery without angina pectoris; Z79.82 Long term (current) use of aspirin; Y83.8 Other surgical procedures as the cause of abnormal reaction of the patient, or of later complication, without mention of misadventure at the time of the procedure; T82.868A Thrombosis due to vascular prosthetic devices, implants and grafts, initial encounter
CPT/HCPCS: 35501; 36415; 71045; 74230; 80048; 84484; 85025; 85027; 85610; 85730; 86850; 86900; 86901; 92610; 92611; 93005; 94640

== ENCOUNTER 2024-11-21 14:28 | Emergency (ER) | payer BC, SELFPAY ==
[2024-11-21 14:30] VITALS: BP 128/84
--- NOTE | 2024-11-21 15:47 | ED.GENMED ---
History of Present Illness
General
Chief Complaint: Catheter/Tube Problem
Source: patient
Exam Limitations: none
Time Seen by Provider: 11/21/24 15:39
History of Present Illness
History of Present Illness:
58-year-old male presents with blocked suprapubic catheter. His suprapubic catheter has been in for total 6 months last 1 was exchanged about 2 weeks ago. He tried irrigating at home without success. No other complaints.
Past History
Past History
ED Past Medical History: Cancer (nasopharyngeal lymphoma), HTN, Hypercholesterolemia, Other (atherosclerosis) and Other (psoriasis)
Phy Exam
Physical Exam
Physical Exam:
General: Well-appearing male no acute distress
HEENT: Normocephalic well-appearing surgical incision of the right side of the neck consistent with recent carotid artery bypass [place] intact no surrounding erythema
Heart: Regular rate and rhythm
Lungs: Clear no wheeze
Abdomen: Soft slightly tender suprapubic region. Suprapubic catheter present no urine in the bag
Extremities: No cyanosis
Course
Vital Signs
Initial and Last Documented VS:
Initial Vital Signs
Temp Pulse Resp BP Pulse Ox
97.7 F 88 18 128/84 98
11/21/24 14:30 11/21/24 14:30 11/21/24 14:30 11/21/24 14:30 11/21/24 14:30
Last Documented Vital Signs
Temp Pulse Resp BP Pulse Ox
97.7 F 88 18 128/84 98
11/21/24 14:30 11/21/24 14:30 11/21/24 14:30 11/21/24 14:30 11/21/24 14:30
MDM/Problems Addressed
Differential Diagnosis Includes:
Blocked suprapubic catheter. Multiple attempts were made at hand irrigation which were unsuccessful. The existing suprapubic catheter was removed and an 18 [place] Sánchez catheter was placed back into the suprapubic region without difficulty. Urine
flowed well into the bag. Patient feeling better. Stable for discharge
*Critical Care Note
Total Time (30-74mins, 75-104mins- exclusive of procedures): Not Applicable
ED Attending Note
-
Portions of this chart may have been created with voice recognition software.� Occasional wrong word or��sound alike� substitutions may have occurred due to the inherent limitations of voice recognition software.
Discharge Plan
Departure
Patient Disposition: Home (Routine Discharge)
Date of Disposition: 11/21/24
Time of Disposition: 17:01
Patient with high blood pressure during this ER visit?: No
Discharge Problem:
Blocked suprapubic catheter
Instructions: How to Care for Your Sánchez Catheter, Male
Prescriptions:
No Action
metoprolol succinate 100 MG tablet extended release 24 hr
100 mg PO QPM
clopidogrel 75 MG tablet
75 mg PO QPM
aspirin [Aspir-Low] 81 MG tablet,delayed release (DR/EC)
81 mg PO QPM
albuterol sulfate 1 PUFF HFA aerosol inhaler
2 puff inhalation Q4HPRN PRN (Reason: wheeze)
Saline Nasal [place] 30 ML aerosol,spray
2 spray intranasal PRN PRN (Reason: dryness)
atorvastatin 10 MG tablet
10 mg PO QPM
levothyroxine 100 mcg Tablet
100 mcg PO DAILY
oxycodone 5 mg Tablet
5 mg PO Q6HPRN PRN (Reason: moderate pain) Qty: 8 0RF
lisinopril 10 mg Tablet
20 mg PO DAILY Qty: 0 0RF
Referrals:
UNKNOWN - PT DOES,NOT KNOW [Family Provider] -
Activity Restrictions/Additional Instructions:
Return if needed
Interventions
Interventions:
*Risk Screen - Suicide Last Done: 11/21/24 14:30
*General Assessment Last Done: 11/21/24 14:30
*ED COVID-19 Vaccine History Last Done: 11/21/24 14:30
Discharge Date and Time
Print Language: INDONESIAN
[2024-11-21 17:10] VITALS: BP 118/82
== END 2024-11-21 17:10 | disposition home or self-care (01) ==
LOC: EMR 14:28
PROVIDERS: EMERGENCY PHYSICIAN Emergency Medicine
DX: T83.090A Other mechanical complication of cystostomy catheter, initial encounter (principal); X58.XXXA Exposure to other specified factors, initial encounter; E78.00 Pure hypercholesterolemia, unspecified; I10 Essential (primary) hypertension
CPT/HCPCS: 51705; 99283

== ENCOUNTER → 2024-12-21 15:24 | Outpatient (REF) | payer BC, SELFPAY | LOC: RAD 15:24 | PROVIDERS: ATTENDING PHYSICIAN Physician Assistant; FAMILY PHYSICIAN Nurse Practitioner Family | DX: I65.23 Occlusion and stenosis of bilateral carotid arteries (principal) | CPT/HCPCS: 93880 ==

== ENCOUNTER 2025-04-02 13:02 | Day surgery (SDC) | payer BC, SELFPAY ==
--- NOTE | 2025-04-02 13:43 | ITS.CL.IMPLP ---
Segmental Paving Supervisor - Implant Loop
Implant Loop
Procedure Report:
Primary Care: ZACK Gimenez
Primary Workflow Developer: Dr Nicolas Matias
Procedure Date: 04/02/2025
Procedure: Placement of a loop recorder.
History/Indication:
1. See office H&P for complete history.
2. Patient is a pleasant 59-year-old male with a past medical history significant for CVA, carotid artery stenosis, hypertension, hyperlipidemia, nasopharyngeal cancer with radiation, murmur, bladder outlet obstruction. Patient had acute CVA March
2024 with bilateral emboli. Given recurrent bilateral stroke with unclear etiology and concerning cardioembolic source, patient undergoing ILR implant for monitoring for possible cardioembolic source.
Method:
After informed consent was obtained, the patient was brought to the EP laboratory holding area in a fasting, non-sedated state. Peripheral access was established. The left chest was prepared and draped in a sterile fashion. A 'time out' was
called. Local anesthesia was injected in the subcutaneous tissue. The ILR was injected under the skin. Topical skin adhesive was applied. Following the procedure, the patient was taken to the recovery area in stable condition. No complications
were noted.
Device Data:
[employer]; Model# LINQ II; Serial# [id number]
Conclusion:
Successful placement of a loop recorder.
Recommendations:
1. Follow-up will be arranged in the [facility] in 7-10 days for wound check.
2. Routine ILR care.
Balta Brandt, , [facility], [facility]
Clinical Cardiac Supervisor Gear Repair
cc: ZACK Gimenez; Dr Nicolas Matias
== END 2025-04-02 13:52 | disposition home or self-care (01) ==
LOC: CATH 13:02
PROVIDERS: ATTENDING PHYSICIAN Internal Medicine Cardiovascular Disease; OTHER PHYSICIAN Internal Medicine Cardiovascular Disease
DX: Z09 Encounter for follow-up examination after completed treatment for conditions other than malignant neoplasm (principal); Z85.818 Personal history of malignant neoplasm of other sites of lip, oral cavity, and pharynx; E78.5 Hyperlipidemia, unspecified; I10 Essential (primary) hypertension; Z86.73 Personal history of transient ischemic attack (TIA), and cerebral infarction without residual deficits; I65.29 Occlusion and stenosis of unspecified carotid artery
CPT/HCPCS: 33285; C1764

== ENCOUNTER → 2025-09-20 06:34 | Outpatient (REF) | payer BC, SELFPAY | LOC: RAD 06:34 | PROVIDERS: ATTENDING PHYSICIAN Physician Assistant; FAMILY PHYSICIAN Nurse Practitioner Adult Health | DX: I65.23 Occlusion and stenosis of bilateral carotid arteries (principal) | CPT/HCPCS: 93880 ==